=== PATIENT | female | born 1975 | race Caucasian/White ===

== ENCOUNTER 2022-06-18 02:35 | Emergency (ER) | payer BC ==
[~2022-06-18] VITALS: Ht 170.2 cm; Wt 63.5 kg
[2022-06-18] MEDS ORDERED: IV NS 1000 ML 1,000 ML IV ONE (03:15)
[2022-06-18 03:28] LABS: HEMATOCRIT 41.1 % (31.2-41.9); MEAN CORPUSCULAR VOLUME 90.3 fL (75.5-95.3); PLATELET COUNT (AUTO) 301 K/uL (179-408)
[2022-06-18 03:36] LABS: CARBON DIOXIDE 29 mmol/L (21-32); CHLORIDE 105 mmol/L (98-107); CREATININE 0.8 mg/dL (0.6-1.3); GLUCOSE 96 mg/dL (74-106); POTASSIUM 4.3 mmol/L (3.5-5.1); UREA NITROGEN, BLOOD 13 mg/dL (7-18)
[2022-06-18 03:44] LABS: ALANINE AMINOTRANSFERASE 26 U/L (14-59); ALKALINE PHOSPHATASE 51 U/L (50-136); ASPARTATE AMINOTRANSFERASE 19 U/L (15-37); BILIRUBIN,DIRECT 0.1 mg/dL (0.0-0.2); BILIRUBIN,TOTAL 0.4 mg/dL (0.2-1.0); TOTAL PROTEIN, SERUM 7.5 g/dL (6.4-8.2)
[2022-06-18] MEDS ORDERED: MAGNESIUM SULFATE/D5W 300 ML ONE (04:16)
[2022-06-18] MEDS: MAGNESIUM SULFATE/D5W 100 ML IV SCH ×3 (04:27→05:28)
[2022-06-18] MEDS ORDERED: HYDR-3972 PO (05:34)
--- NOTE | 2022-06-18 05:49 | NUR ---
All three grams of magnesium were infused and completed.
--- NOTE | 2022-06-18 05:51 | NUR ---
Patient discharged to home in stable condition. Written and verbal after care instructions given. Patient verbalizes understanding of instructions. Stressed follow up or return to ER for worsening s/s. Patient walked out with steady gait.
[2022-06-18 06:30] VITALS: BP 133/79
== END 2022-06-18 05:59 | disposition home or self-care (01) ==
LOC: ER 02:46
DX: R07.89 Other chest pain (principal); I49.3 Ventricular premature depolarization; E83.42 Hypomagnesemia; R00.0 Tachycardia, unspecified; Z90.49 Acquired absence of other specified parts of digestive tract; Z87.19 Personal history of other diseases of the digestive system
CPT/HCPCS: 99285; 96365; 71045; 96361; 96366; 80076; 80048; 83735; 85025; 85379; 84484 ×2; 36415; 93005; J3475; J7040; A4663